=== PATIENT | male | born 1955 | race Caucasian/White ===

== ENCOUNTER 2016-12-19 23:08 | Emergency (ER) | payer BC ==
[~2016-12-19] VITALS: Ht 182.9 cm; Wt 80.0 kg
[2016-12-19 23:17] VITALS: TEMP 98.3
[2016-12-19] MEDS ORDERED: BENA25TA3 PO (23:21)
[2016-12-19] MEDS ORDERED: IBUP400T20 PO (23:21)
--- NOTE | 2016-12-19 23:26 | PD ---
HPI Chief Complaint: Laceration/Skin Injury Time Seen by Provider: 23:22 Travel History International Travel<30 days: No Contact w/Intl Traveler<30days: No Traveled to known affect area: No History of Present Illness HPI 60-year-old white male presents to emergency department by EMS for evaluation of a left lower leg laceration. He states that he had cut his left leg on a metal bed frame. He has not had a tetanus shot over 5 years. He states that he had jumped up and lacerated his leg. He denies any numbness, tingling or weakness. Pain is mild. Patient admits to 3-4 beers earlier. PFSH Past Medical History Narrative Medical dENIES DIABETES AND HYPERTENSION Tetanus Vaccination: > 5 Years Past Surgical History Narrative Surgical Cervical fusion Social History Alcohol Use: Yes Tobacco Use: Yes Allergies-Medications (Allergen,Severity, Reaction): Coded Allergies: No Known Allergies (Unverified , 12/19/16) Reported Meds & Prescriptions Reported Meds & Active Scripts Active Reported Benadryl Allergy (Diphenhydramine HCl) 25 Mg Tab 25 Mg PO Q6H PRN Ibuprofen 400 Mg Tab 400 Mg PO Q8H PRN Review of Systems Except as stated in HPI: all other systems reviewed are Neg Musculoskeletal: Positive: Arthralgias, Edema, Pain, No: Myalgias, Limited ROM , Weakness Skin: Positive Other (laceration), No Rash, No Itching Physical Exam Narrative GENERAL: This is a well-nourished, well-developed patient, in no apparent distress. SKIN: No rashes, ecchymoses or lesions. Warm and dry. HEAD: Atraumatic. Normocephalic. EYES: PERRL, EOMI, no discharge or injection. No scleral icterus. EARS: Clear NOSE: Nasal turbinates appear normal. THROAT: Mucosa pink and moist. Airway patent. NECK: Trachea midline. supple, moves head freely. LUNGS: Clear to auscultation. CV: Regular in rhythm. ABDOMEN: Soft nontender. 7EXT: No clubbing cyanosis or edema. Patient has a large laceration to the left lower leg with a large hematoma. The laceration measures 7cm. Small amount of weeping and oozing. Patient has intact dorsalis pedis and posterior tibials pulses. No pain in the foot, ankle or knee. Data Data Last Documented VS Vital Signs Date Time Temp Pulse Resp B/P Pulse Ox O2 Delivery O2 Flow Rate FiO2 12/19/16 23:21 16 12/19/16 23:17 98.3 Orders Tetanus/Diphtheria Tox Adult (Tetanus/Di (12/19/16 23:30) Lidocai-Epi 1%-1:100,000 Inj (Xylocaine- (12/19/16 23:30) MDM Medical Decision Making Medical Screen Exam Complete: Yes Emergency Medical Condition: Yes Medical Record Reviewed: Yes Differential Diagnosis MDM: High Differential diagnoses: Fracture, sprain, strain, dislocation, contusion, neurovascular injury Narrative Course pATIENT'S TETANUS STATUS UPDATED. Patient's lacerations closed with sutures. Procedures Procedure Narrative LACERATION LOCATION: Left lower leg LENGTH: 7 cm NUMBER OF STITCHES/BENITO: 12 REPAIR: The area of the laceration was prepped with Betadine and sterilely draped. The laceration was infiltrated with 1% lidocaine with epinephrine. The wound was copiously irrigated and explored without evidence of foreign body , tendon injury or neurovascular injury. Clots are expressed. The wound was closed using 4-0 proline. This was a simple single layer repair. A sterile dressing was applied. The patient was advised to keep the dressing clean and dry. Patient tolerated the procedure well. Diagnosis Primary Impression: Laceration of left lower leg Qualified Code: S81.812A - Laceration of left lower leg, initial encounter Patient Instructions: General Instructions Additional Instructions: Rest. Elevation. Tylenol and Advil for pain. Daily wound care with soap, water, Neosporin. Sutures out in 10 days. Return to the ER if any problems. Med/Other Pt SpecificInfo: Wound Care Disposition: 01 DISCHARGE HOME Condition: Stable Andrea Henry Dec 19, 2016 23:26
[2016-12-19] MEDS ORDERED: LIDOCAINE 1%/EPINEPHrine 1:100,000 SOLN 50 ML VIAL INFIL ONE (23:30)
[2016-12-19] MEDS ORDERED: TETANUS/DIPHTHERIA TOXOID ADULT 0.5 ML VIAL IM ONE (23:30)
[2016-12-20 00:11] VITALS: BP 142/63; PULSE 77; RESP 16; TEMP 98.7; O2SAT 97
== END 2016-12-20 00:40 | disposition home or self-care (01) ==
LOC: NEPB 23:08
DX: S81.812A Laceration without foreign body, left lower leg, initial encounter (principal); W45.8XXA Other foreign body or object entering through skin, initial encounter; W22.03XA Walked into furniture, initial encounter; Y92.003 Bedroom of unspecified non-institutional (private) residence as the place of occurrence of the external cause; Z72.0 Tobacco use; Z23 Encounter for immunization
CPT/HCPCS: 12002; 90471; 90714